=== PATIENT | male | born 1965 | race Caucasian/White ===

== ENCOUNTER 2020-08-12 04:36 | Emergency (ER) | payer BC, SELFPAY ==
[2020-08-12 04:39] VITALS: BP 142/86; PULSE 81; RESP 11; TEMP 37.1; O2SAT 99; BMI 20.3
--- NOTE | 2020-08-12 04:46 | EKG12_ITS ---
Test Reason : CP Blood Pressure : / mmHG Vent. Rate : 081 BPM Atrial Rate : 081 BPM P-R Int : 100 ms QRS Dur : 080 ms QT Int : 358 ms P-R-T Axes : 071 085 054 degrees QTc Int : 415 ms Sinus rhythm with sinus arrhythmia with short [place] Otherwise normal ECG Confirmed by FOZIA MCCLURE, YECENIA ([id number]), newspaper managing editor SALVATORE BLACKBURN ([id number]) on 08/14/2020 12:18:23 PM Referred By: Confirmed By:YECENIA MARCELO MD
--- NOTE | 2020-08-12 04:47 | EDS_ITS ---
HPI History of Present Illness Chief Complaint: Chest Pain Informant: patient Narrative Narrative: 54-year-old male presents to the emergency department out of concerns he is having a heart attack. He states he has a history of coronary artery disease and has not seen a doctor's for several years since he had his heart attack. He is a smoker. He currently takes only a baby aspirin. He states that for the past 3 weeks he has had pain in his shoulders. He states that moves from the left to the right. It is worse when he lays down at night but he can feel it throughout the day. He has a exerting job in receiving tank operator. He reports that he remembered his mom complaining of shoulder pain when she had her heart attacks. However when he had his heart attack he had central chest pain. He states this does feel different. He is interested in establishing with cardiology. [facility] Medical History (Updated 08/12/20 @ 05:[address] Aman Pandya DO) Myocardial infarct Home Medications aspirin 81 mg PO DAILY 08/12/20 [History Last Taken Unknown] Allergy/AdvReac Type Severity Reaction Status Date / Time No Known Allergies Allergy Verified 08/12/20 04:37 Surgical History Stented coronary artery Social History (Updated 08/12/20 @ 04:[address] Aman Pandya DO) Smoking Status: Current every day smoker tobacco type: cigarettes substance use type: does not use ROS ROS ED Constitutional Constitutional ED: Denies chills or weight loss Eyes Eyes: Denies change in vision or diplopia ENT ENT ED: Denies ear pain, rhinorrhea or sore throat Cardiovascular Cardiovascular: Denies chest pain, orthopnea, palpitations or racing heartbeat Respiratory/Chest Respiratory/Chest: Denies cough, dyspnea or orthopnea Gastrointestinal Gastrointestinal: Denies abdominal pain, diarrhea, nausea or vomiting Genitourinary Genitourinary ED: Denies dysuria, hematuria or urinary frequency Musculoskeletal Musculoskeletal: Reports other Details: Bilateral shoulder pain ; Denies arthr algias or myalgias Integumentary Denies abscess or rash Neurologic Neurologic: Denies headache(s) or weakness Psychiatric Psychiatric: Denies anxiety, depression, suicidal ideation or suicidal thoughts Endocrine Endocrinology: Denies polydipsia, polyphagia or polyuria Allergic/Immunologic Allergic/Immunologic ED: Denies mouth swelling, tongue swelling or urticaria EXAM Physical Exam Const Vital Signs: 08/12/20 04:39 08/12/20 04:44 Temperature 98.7 F Temperature Source Temporal Pulse Rate 81 Respiratory Rate 11 L Respiratory Effort Normal Respiratory Pattern Normal Blood Pressure 142/86 H Blood Pressure Mean 104 Pulse Ox 99 Oxygen Delivery Method Room Air Positive well nourished and well developed General Appearance ED: well developed HEENT Reports normocephalic, head/scalp atraumatic and moist mucous membranes Eyes PERRL and EOMs intact bilaterally Neck no lymphadenopathy, supple and no JVD Resp normal respiratory effort and clear to auscultation bilaterally Cardio regular rate, regular rhythm and no murmurs GI normal to inspection, nondistended, normoactive bowel sounds and non-tender Palpation: soft Back/Spine no CVA tenderness and normal ROM Extremity normal to inspection General Extremety ED: Negative for edema General Extremity: Negative for edema Neuro oriented x3 and CN's II-XII intact bilaterally Sensorium / Orientation: alert Motor Exam: strength 5/5 throughout Psych mental status grossly normal Mood & Affect: Negative for depressed or tearful Skin no rashes or lesions noted and no wounds Heart Score History: Slightly/Non-Suspicious ECG: Normal Age: >45 - <65 years Risk Factors: >/= 3 Risk Factors or History of CAD Troponin: </= Normal Limit Score: 3 MDM MDM Lab Data Labs: Laboratory Results - last 24 hr 08/12/20 08/12/20 04:55 04:55 WBC 6.5 RBC 4.57 L Hgb 15.2 Hct 45.0 MCV 98.5 H MCH 33.3 H MCHC 33.8 RDW Std Deviation 47.7 H RDW Coeff of [place] 13.2 Plt Count 257 MPV 9.0 Immature Gran % (Auto) 0.200 Neut % (Auto) 41.6 L Lymph % (Auto) 41.6 H [place] % (Auto) 7.1 Eos % (Auto) 8.3 H Baso % (Auto) 1.2 H Absolute Neuts (auto) 2.7 Absolute Lymphs (auto) 2.71 Nucleated RBC % 0 Sodium 140 Potassium 4.0 Chloride 104 Carbon Dioxide 31.0 Anion Gap 5 BUN 22 H Creatinine 0.93 Estim Creat Clear Calc 86.32 Est GFR (MDRD) Af Amer 108 Est GFR (MDRD) Non-Af 89 BUN/Creatinine Ratio 23.6 H Glucose 103 Calcium 8.9 Troponin I < 0.015 Radiography Diagnostic Testing: Radiology Impression Chest X-Ray 08/12/20 04:58 IMPRESSION: No radiographic evidence of acute cardiopulmonary disease. Electronically Signed: Paulina Yi MD at 5:22 EDT , Service support , EKG Initial EKG: Attestation: I personally reviewed and interpreted this EKG as follows: Comments: EKG demonstrates a sinus rhythm with sinus arrhythmia. Ventricular rate of 81. Noted short [place] interval Discharge Plan Triage Chief Complaint: Chest Pain ED Provider: Aman Pandya Dx/Rx/DC Orders Clinical Impression: Bilateral shoulder pain, Coronary artery disease Instructions: ED Shoulder Pain, Uncertain Cause Prescriptions: No Action aspirin 81 mg Tablet 81 mg PO DAILY RF: 0 Primary Care Provider: Care Physician,No Primary Referrals: Socrates Henry MD [STAFF PHYSICIAN] - As soon as possible (for cardiology) Ant Rehman DO [STAFF PHYSICIAN] - As soon as possible (for orthopedics ) Care Physician,No Primary [Primary Care Provider] - Disposition Disposition: Home, self care
[2020-08-12 04:58] LABS: Absolute Lymphocyte Count 2.71 X10^3/uL (0.83-4.51); Absolute Neutrophil Count 2.7 X10^3/uL (2.0-7.7); Basophil# 0.08 X10^3/uL; Basophil% 1.2 % (0-1); Eosinophil# 0.54 X10^3/uL; Eosinophils% 8.3 % (0-5); Hemoglobin 15.2 g/dL (13.0-16.5); Lymphocyte # 2.71 X10^3/ul (0.83-4.51); Lymphocyte % 41.6 % (19-41); Mean Corp Hgb Conc 33.8 g/dL (32-36); Mean Corpuscular Hgb 33.3 pg (27.0-32.0); Mean Corpuscular Volume 98.5 fL (80-94); Monocyte# 0.46 X10^3/uL; Monocyte% 7.1 % (0-10); NRBC Flagged by Analyzer 0 % (0-5); Neutrophil # 2.72 X10^3/uL (2.7-7.7); Neutrophil % 41.6 % (47-70); Platelet Count 257 K/mm3 (150-450); RBC Distribution Width CV 13.2 % (11.6-14.6); RBC Distribution Width SD 47.7 fl (35.1-43.9); Red Blood Count 4.57 M/mm3 (4.6-6.2); White Blood Count 6.5 K/mm3 (4.4-11.0)
--- NOTE | 2020-08-12 04:58 | RAD_ITS ---
STUDY: X-RAY CHEST REASON FOR EXAM: Male, 54 years old patient with chest pain. TECHNIQUE: Single AP portable view of the chest. COMPARISON: Prior comparison studies are not available for review at this time. FINDINGS: Cardiac monitoring leads are present. The lungs are clear and hyperexpanded. There is no demonstrated pleural abnormality. Normal size heart. Normal mediastinum and clover. Normal visualized pulmonary arteries. Normal visualized aortic arch and descending thoracic aorta. Normal visualized thoracic spine. Normal visualized ribs, clavicles, and shoulders. There is no demonstrated abnormality of the visualized soft tissue structures of the upper abdomen. RAD/Chest 1 View (Portable) IMPRESSION: No radiographic evidence of acute cardiopulmonary disease. Electronically Signed: Paulina Yi MD at 5:22 EDT , Service support ,
[2020-08-12 05:24] LABS: Anion Gap 5 (5-15); BUN 22 mg/dL (7-18); BUN/Creat Ratio 23.6 RATIO (10-20); Calcium,Total 8.9 mg/dL (8.5-10.1); Chloride 104 mmol/L (98-107); Creatinine, Serum 0.93 mg/dL (0.70-1.30); EST Glomerular Filtration Rate 89 mL/min (>60); Est Glom Filt Rate - Afr Amer 108 mL/min (>60); Estimated Creatinine Clearance 86.32 ml/min; Glucose 103 mg/dL (74-106); Sodium Level 140 mmol/L (136-145)
[2020-08-12 05:53] VITALS: BP 137/83; PULSE 89; RESP 16; O2SAT 96
== END 2020-08-12 05:53 | disposition home or self-care (01) ==
LOC: ED 05:45
PROVIDERS: Emergency Provider Emergency Medicine
DX: M25.511 Pain in right shoulder (principal); M25.512 Pain in left shoulder; I25.10 Atherosclerotic heart disease of native coronary artery without angina pectoris; F17.210 Nicotine dependence, cigarettes, uncomplicated
CPT/HCPCS: 71045; 80048; 84484; 85025; 93005; 99284; A4216